=== PATIENT | male | born 2005 | race Caucasian/White ===

== ENCOUNTER 2025-05-28 03:54 | Emergency (ER) | payer SELFPAY ==
[2025-05-28 04:03] LABS: BASOPHILS ABSOLUTE AUTO 0.0 K/mm3 (0.0-0.2); BASOPHILS PERCENT AUTO 0.3 % (0.0-1.0); EOSINOPHILS ABSOLUTE AUTO 0.1 K/mm3 (0.0-0.4); EOSINOPHILS PERCENT AUTO 1.4 % (0.0-6.0); IMMATURE GRAN ABSOLUTE AUTO 0.04 K/mm3 (0.00-0.05); IMMATURE GRAN PERCENT AUTO 0.5 % (0.0-0.4); LYMPHOCYTES ABSOLUTE AUTO 3.9 K/mm3 (1.0-4.8); LYMPHOCYTES PERCENT AUTO 43.6 % (24.0-44.0); MEAN PLATELET VOLUME 10.3 fl (9.4-12.4); MONOCYTES ABSOLUTE AUTO 0.7 K/mm3 (0.0-0.8); MONOCYTES PERCENT AUTO 8.1 % (0.0-8.0); NEUTROPHILS ABSOLUTE AUTO 4.1 K/mm3 (1.8-7.7); NEUTROPHILS PERCENT AUTO 46.1 % (41.0-71.0); NRBC ABSOLUTE 0.00 (0.00-0.02); NRBC PERCENT 0.0 % (0.0-0.2); PLATELET COUNT,PLT 235 K/mm3 (150-400); RED BLOOD CELL COUNT 4.82 M/mm3 (4.52-5.90); WHITE BLOOD CELL COUNT,WBC 8.86 K/mm3 (3.9-11.3)
[2025-05-28 04:22] LABS: INR 1.11
[2025-05-28 04:25] LABS: A/G RATIO 1.4 (1-2); ALANINE AMINOTRANSFERASE,ALT 76 U/L (16-63); ASPARTATE AMNIOTRANSFERASE,AST 25 U/L (15-37); BILIRUBIN TOTAL 0.5 mg/dL (0.2-1.0); BLOOD UREA NITROGEN,BUN 21 mg/dL (7-18); CARBON DIOXIDE,CO2 28 mEq/L (21-32); CHLORIDE,CL 104 mEq/L (98-107); CREATININE 1.2 mg/dL (0.7-1.3); ESTIMATED GFR 89 mL/min (>60); GLUCOSE RANDOM 134 mg/dL (70-99); POTASSIUM,K 3.4 mEq/L (3.5-5.1); PROTEIN TOTAL,TP 6.8 g/dl (6.4-8.2); SODIUM,NA 142 mEq/L (136-145)
[2025-05-28 04:27] LABS: ETHANOL BLOOD MEDICAL 0.00 gm% (0.00)
[2025-05-28] MEDS: Iopamidol 612 MG/ML 100 ML Bottle IVPUSH ONE (04:55)
[2025-05-28 05:12] LABS: APPEARANCE,URINE CLEAR (Clear); GLUCOSE,URINE NEGATIVE (Negative); OCCULT BLOOD,URINE TRACE-INTACT (Negative)
[2025-05-28 05:23] LABS: BUPRENORPHINE SCREEN,URINE NEGATIVE (CUTOFF=10); METHADONE SCREEN, URINE NEGATIVE (CUT0FF=200); METHAMPHETAMINES SCREEN, URINE NEGATIVE (CUTOFF=500); OXYCODONE SCREEN,URINE NEGATIVE (CUT0FF=100); THC SCREEN,URINE 20 NG/ML NEGATIVE (CUTOFF=50)
[2025-05-28 05:26] LABS: AMPHETAMINES SCREEN, URINE NEGATIVE (CUTOFF=500)
[2025-05-28 05:36] LABS: EPITHELIAL CELLS,URINE NOT SEEN /hpf (0-5)
[2025-05-28] MEDS ORDERED: Naloxone 0.4 MG/ML SDV IVPUSH PRN (06:59)
[2025-05-28] MEDS: Sodium Chloride 0.9% 10 ML Syringe FLUSH PRN (07:15)
== END 2025-05-28 09:00 | disposition home or self-care (01) ==
LOC: JD.ED 03:54
DX: S01.81XA Laceration without foreign body of other part of head, initial encounter (principal); V49.59XA Passenger injured in collision with other motor vehicles in traffic accident, initial encounter
CPT/HCPCS: 12016; 36415; 70450; 71260; 72125; 72128; 72131; 74177; 80053; 80306; 80307; 81001; 85025; 85610; 86850; 86900; 86901; 93005; 96374; 99285; J2003; J2270; J7030; Q9967; 93010; 99284